=== PATIENT | female | born 1995 | race Two or more races ===

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

== ENCOUNTER 2017-03-18 15:45 | Emergency (ER) | payer OTHER ==
[2017-03-18 16:30] LABS: URINE SOURCE CLEAN CATCH
[2017-03-18 16:56] LABS: URINE APPEARANCE CLEAR; URINE BILIRUBIN NEG (NEG); URINE BLOOD NEG (NEG); URINE COLOR YELLOW; URINE GLUCOSE NEG (NEG); URINE KETONE NEG (NEG); URINE LEUKOCYTE ESTERASE NEG (NEG); URINE NITRATE NEG (NEG); URINE PH 5.5 (5-8); URINE PROTEIN NEG (NEG); URINE SPECIFIC GRAVITY 1.022 (1.003-1.035)
[2017-03-18 17:00] LABS: CULTURE INDICATED? NO
[2017-03-20 23:36] LABS: CHLAMYDIA TRACH Not Detected (Not Detected); N GONOR Not Detected (Not Detected)
== END 2017-03-18 19:24 | disposition home or self-care (01) ==
LOC: CED 15:45 → CFTX 15:45
PROVIDERS: Nurse Practitioner
DX: R10.11 Right upper quadrant pain (principal); R10.12 Left upper quadrant pain; R10.31 Right lower quadrant pain; R10.32 Left lower quadrant pain; M54.5 Low back pain
CPT/HCPCS: 81003; 84703; 87220; 87491; 87591; 87808; 87905; 99284